=== PATIENT | male | born 1960 | race Caucasian/White ===

== ENCOUNTER 2023-02-06 17:11 | Inpatient (IN) ==
[2023-02-06] MEDS ORDERED: NS 0.9% 1000 ml BAG 1,000 ML IV ONE (18:25)
[2023-02-06] MEDS ORDERED: Morphine 2 MG/ML SYRINGE IV PRN (18:40)
[2023-02-06 18:42] LABS: Calcium 7.1 mg/dL (8.6-10.3); Creatinine, Serum 0.58 mg/dL (0.67-1.17); eGFR CKD-EPI 110.3 (>60)
[2023-02-06 18:49] LABS: Potassium 2.6 mmol/L (3.5-5.0)
[2023-02-06 20:13] LABS: INR 1.27 (0.88-1.18)
[2023-02-06 20:15] LABS: Magnesium 1.1 mg/dL (1.9-2.7)
[2023-02-06] MEDS: KCL 20 MEQ/100 ML IVPREMIX 20 MEQ/100 ML BAG IV SCH ×2 (20:17→23:25)
[2023-02-06] MEDS ORDERED: Magnesium Sulfate IV 3 GM in NS 0.9% 100 ml BAG 100 ML IVPB ONE (20:22)
[2023-02-06] MEDS ORDERED: Enoxaparin 40 MG/0.4 ML SYR SUBCUT ONE (20:34)
[2023-02-06 21:50] LABS: TSH Ultra Thyroid Stim Horm 0.92 mcIU/mL (0.34-5.60)
[2023-02-06 22:01] LABS: Folate 1.86 ng/mL (5.90-24.80)
[2023-02-06] MEDS: Lactated Ringers 1000 ml BAG 1,000 ML IV SCH (23:25)
[2023-02-07 03:58] LABS: ABS Basophils 0.2 10^3/uL (0.0-0.1); ABS Eosinophils 0.1 10^3/uL (0.0-0.5); ABS Lymphocytes 0.6 10^3/uL (1.0-4.8); ABS Monocytes 0.1 10^3/uL (0.0-1.1); ABS Neutrophils 4.8 10^3/uL (1.5-7.6); Eosinophil % 1.8 %; Hematocrit 25.3 % (38-53); Hemoglobin 9.1 g/dL (13.2-16.3); Lymphocyte % 11.1 %; Mean Corpuscular Hemoglobin 41.4 pg (27-33); Mean Platelet Volume 7.4 fL (7.5-11.2); Platelet Count 167 10^3/uL (150-450); Red Cell Distribution Width 20.2 % (12-17); White Blood Count 5.8 10^3/uL (3.6-10.2)
[2023-02-07 04:21] LABS: Calcium 6.8 mg/dL (8.6-10.3); Creatinine, Serum 0.51 mg/dL (0.67-1.17); Magnesium 1.7 mg/dL (1.9-2.7); Potassium 3.1 mmol/L (3.5-5.0); eGFR CKD-EPI 114.6 (>60)
[2023-02-07] MEDS ORDERED: Magnesium Sulfate 2 gm BAG 2 GM/50 ML BAG IVPB ONE (05:31)
[2023-02-07] MEDS: KCL 20 MEQ/100 ML IVPREMIX 20 MEQ/100 ML BAG IV SCH ×2 (07:31→10:09)
[2023-02-07] MEDS: Lactated Ringers 1000 ml BAG 1,000 ML IV SCH (07:31)
[2023-02-07 08:28] LABS: Albumin 2.2 g/dL (3.2-5.2)
[2023-02-07] MEDS ORDERED: ceFAZolin 2 GM PREMIX 2 GM/50 ML BAG ONE (08:40)
[2023-02-07] MEDS ORDERED: Metoclopramide 5 MG/ML VIAL (10 mg) ONE (08:57)
[2023-02-07] MEDS ORDERED: Rocuronium 50 mg VIAL 10 mg/ml 5 ml VIAL (50 mg) ONE (08:57)
[2023-02-07] MEDS ORDERED: Propofol 10 MG/ML 20 ML BTL ONE (08:57)
[2023-02-07] MEDS ORDERED: fentaNYL 250 mcg/5 ml 50 MCG/ML 5 ml VIAL (250 MCG) ONE (08:57)
[2023-02-07] MEDS ORDERED: Dexamethasone IV 4 MG/ML VIAL 1 ml VIAL ONE (08:57)
[2023-02-07] MEDS ORDERED: Acetaminophen IV 1 GM/100ML 1,000 MG/100 ML BAG IV ONE (08:57)
[2023-02-07] MEDS ORDERED: Ondansetron 4 mg VIAL 2 MG/ML 2 ml VIAL ONE (08:57)
[2023-02-07 09:21] LABS: Calcium 6.9 mg/dL (8.6-10.3); Creatinine, Serum 0.47 mg/dL (0.67-1.17); Magnesium 2.1 mg/dL (1.9-2.7); Potassium 3.2 mmol/L (3.5-5.0); eGFR CKD-EPI 117.5 (>60)
[2023-02-07] MEDS ORDERED: Naloxone 0.4 mg VIAL 0.4 mg/ml 1 ml VIAL IV PRN (09:44)
[2023-02-07] MEDS ORDERED: Prochlorperazine 5 mg/ml 2 ml VIAL (10 mg) IV PRN (09:44)
[2023-02-07] MEDS ORDERED: Morphine 4 MG/ML VIAL (1 ml) IV PRN (09:44)
[2023-02-07] MEDS ORDERED: Bupivacaine 0.5% SDV PF 30ML VIAL ONE ×2 (10:08→10:40)
[2023-02-07] MEDS: Nicotine PATCH 21 MG/24 HR PATCH TRANSDERM SCH (10:21)
[2023-02-07] MEDS ORDERED: fentaNYL 100 mcg/2 ml 50 MCG/ML VIAL ONE (13:36)
[2023-02-07] MEDS: fentaNYL 100 mcg/2 ml 50 MCG/ML VIAL IV PRN ×4 (13:37→14:32)
[2023-02-07] MEDS ORDERED: CALCIUM GLUCONATE 1GM/50ML NS 1 GM/50 ML BAG IV ONE (14:11)
[2023-02-07 14:48] LABS: Albumin 2.4 g/dL (3.2-5.2); Albumin/Globulin Ratio 0.8 (1-3); Creatinine, Serum 0.54 mg/dL (0.67-1.17); Globulin 2.9 g/dL (2-4); Potassium 4.1 mmol/L (3.5-5.0); Total Bilirubin 1.7 mg/dL (0.2-1.0); Total Protein 5.3 g/dL (6.4-8.9); eGFR CKD-EPI 112.7 (>60)
[2023-02-07] MEDS: Morphine 2 MG/ML SYRINGE IV PRN (16:42)
[2023-02-07] MEDS: ceFAZolin 1 GM in Dextrose 1 GM/50 ML BAG IVPB SCH (18:21)
[2023-02-07] MEDS: Acetaminophen IV 1 GM/100ML 1,000 MG/100 ML BAG IV PRN (22:05)
[2023-02-08] MEDS: Lactated Ringers 1000 ml BAG 1,000 ML IV SCH ×2 (00:26→12:25)
[2023-02-08] MEDS: ceFAZolin 1 GM in Dextrose 1 GM/50 ML BAG IVPB SCH ×2 (02:29→11:11)
[2023-02-08] MEDS: Acetaminophen IV 1 GM/100ML 1,000 MG/100 ML BAG IV PRN (06:18)
[2023-02-08 06:50] LABS: Hematocrit 25.8 % (38-53); Mean Corpuscular Hemoglobin 38.7 pg (27-33); Mean Corpuscular Hgb Conc 34.7 g/dL (31-36); Mean Corpuscular Volume 111.4 fL (80-97); Mean Platelet Volume 7.8 fL (7.5-11.2); Platelet Count 161 10^3/uL (150-450); Red Blood Count 2.32 10^6/uL (4.06-5.63); Red Cell Distribution Width 24.1 % (12-17); White Blood Count 7.8 10^3/uL (3.6-10.2)
[2023-02-08 07:09] LABS: Albumin/Globulin Ratio 0.8 (1-3); Creatinine, Serum 0.57 mg/dL (0.67-1.17); Globulin 2.5 g/dL (2-4); Magnesium 1.5 mg/dL (1.9-2.7); Potassium 3.4 mmol/L (3.5-5.0); Total Bilirubin 0.8 mg/dL (0.2-1.0); Total Protein 4.5 g/dL (6.4-8.9); eGFR CKD-EPI 110.8 (>60)
[2023-02-08] MEDS ORDERED: Potassium Chlor 20 meq TAB.ER PO ONE (07:16)
[2023-02-08] MEDS ORDERED: Magnesium Sulf 4 GM/100 ML IV 4,000 MG/100 ML BAG IVPB ONE (07:16)
[2023-02-08 07:36] LABS: Anisocytosis 3+; Macrocytosis 2+
[2023-02-08 07:38] LABS: ABS Eosinophils 0.1 10^3/uL (0.0-0.5); ABS Lymphocytes 1.1 10^3/uL (1.0-4.8); ABS Monocytes 0.2 10^3/uL (0.0-1.1); ABS Neutrophils 6.4 10^3/uL (1.5-7.6); Eosinophil % 0.8 %; Lymphocyte % 14.5 %; Nucleated Red Blood Cells % 0.1 /100 WBC (0.0-0.4)
[2023-02-08] MEDS: Nicotine PATCH 21 MG/24 HR PATCH TRANSDERM SCH (07:44)
[2023-02-08] MEDS: Enoxaparin 40 MG/0.4 ML SYR SUBCUT SCH (12:23)
[2023-02-08] MEDS: Morphine 2 MG/ML SYRINGE IV PRN (23:10)
[2023-02-09] MEDS: Morphine 2 MG/ML SYRINGE IV PRN (00:18)
[2023-02-09 06:46] LABS: Hematocrit 24.9 % (38-53); Hemoglobin 8.8 g/dL (13.2-16.3); Mean Corpuscular Hemoglobin 39.7 pg (27-33); Mean Corpuscular Hgb Conc 35.3 g/dL (31-36); Mean Corpuscular Volume 112.5 fL (80-97); Mean Platelet Volume 7.5 fL (7.5-11.2); Platelet Count 157 10^3/uL (150-450); Red Blood Count 2.21 10^6/uL (4.06-5.63); Red Cell Distribution Width 24.1 % (12-17); White Blood Count 6.6 10^3/uL (3.6-10.2)
[2023-02-09 07:00] LABS: Creatinine, Serum 0.47 mg/dL (0.67-1.17); Magnesium 1.6 mg/dL (1.9-2.7); Potassium 4.2 mmol/L (3.5-5.0); eGFR CKD-EPI 117.5 (>60)
[2023-02-09 07:07] LABS: ABS Basophils 0.1 10^3/uL (0.0-0.1); ABS Eosinophils 0.1 10^3/uL (0.0-0.5); ABS Lymphocytes 1.1 10^3/uL (1.0-4.8); ABS Monocytes 0.2 10^3/uL (0.0-1.1); ABS Neutrophils 5.1 10^3/uL (1.5-7.6); Eosinophil % 1.3 %; Lymphocyte % 17.2 %; Nucleated Red Blood Cells % 0.1 /100 WBC (0.0-0.4)
[2023-02-09] MEDS ORDERED: Magnesium Sulf 4 GM/100 ML IV 4,000 MG/100 ML BAG IVPB ONE (07:13)
[2023-02-09] MEDS: Nicotine PATCH 21 MG/24 HR PATCH TRANSDERM SCH (09:28)
[2023-02-09] MEDS: Enoxaparin 40 MG/0.4 ML SYR SUBCUT SCH (12:53)
[2023-02-10] MEDS: Magnesium Chloride EC 64 mgTAB PO SCH ×2 (00:06→08:15)
[2023-02-10] MEDS: Morphine 2 MG/ML SYRINGE IV PRN (01:32)
[2023-02-10 07:10] LABS: Magnesium 1.6 mg/dL (1.9-2.7); Potassium 4.2 mmol/L (3.5-5.0)
[2023-02-10 07:15] LABS: ABS Eosinophils 0.1 10^3/uL (0.0-0.5); ABS Lymphocytes 1.2 10^3/uL (1.0-4.8); ABS Monocytes 0.3 10^3/uL (0.0-1.1); Eosinophil % 1.2 %; Hematocrit 23.7 % (38-53); Hemoglobin 8.4 g/dL (13.2-16.3); Lymphocyte % 21.8 %; Mean Corpuscular Hemoglobin 39.8 pg (27-33); Mean Corpuscular Hgb Conc 35.4 g/dL (31-36); Mean Corpuscular Volume 112.5 fL (80-97); Mean Platelet Volume 7.3 fL (7.5-11.2); Nucleated Red Blood Cells % 0.1 /100 WBC (0.0-0.4); Platelet Count 159 10^3/uL (150-450); Red Blood Count 2.11 10^6/uL (4.06-5.63); Red Cell Distribution Width 23.6 % (12-17); White Blood Count 5.7 10^3/uL (3.6-10.2)
[2023-02-10 07:16] LABS: Creatinine, Serum 0.41 mg/dL (0.67-1.17); eGFR CKD-EPI 122.4 (>60)
[2023-02-10] MEDS ORDERED: Magnesium Sulf 4 GM/100 ML IV 4,000 MG/100 ML BAG IVPB ONE (07:45)
[2023-02-10] MEDS: Nicotine PATCH 21 MG/24 HR PATCH TRANSDERM SCH (08:09)
[2023-02-10] MEDS ORDERED: NON FORMULARY MED (Potassium Gluconate 550 mg (90 mg) Tablet) PO SCH (09:00)
[2023-02-10 10:44] VITALS: BP 120/76
[2023-02-10] MEDS: Enoxaparin 40 MG/0.4 ML SYR SUBCUT SCH (11:36)
== END 2023-02-10 13:50 | DRG 308 ==
LOC: EDHOLD 17:11 → ED 17:11 → SUATTDRO 18:35 → OBSVTOIN 18:35 → EDHOLD 21:41 → MEDTELE 22:35 → SSU 02-07 15:41
PROVIDERS: ADMIT Student in an Organized Health Care Education/Training Program; ATTEND Internal Medicine

== ENCOUNTER 2023-02-10 12:02 | Inpatient (IN) ==
[2023-02-10] MEDS ORDERED: Senna TAB 8.6 mg TAB PO PRN (16:01)
[2023-02-10] MEDS ORDERED: Magnesium Hydroxide LIQ 30 ML UDC PO PRN (16:01)
[2023-02-10] MEDS: Magnesium Chloride EC 64 mgTAB PO SCH (21:21)
[2023-02-11] MEDS: Magnesium Chloride EC 64 mgTAB PO SCH ×2 (08:52→20:41)
[2023-02-11] MEDS: Enoxaparin 40 MG/0.4 ML SYR SUBCUT SCH (12:13)
[2023-02-12 07:05] LABS: Albumin 2.2 g/dL (3.2-5.2); Albumin/Globulin Ratio 0.8 (1-3); Calcium 7.7 mg/dL (8.6-10.3); Creatinine, Serum 0.43 mg/dL (0.67-1.17); Globulin 2.7 g/dL (2-4); Potassium 4.8 mmol/L (3.5-5.0); Total Bilirubin 0.7 mg/dL (0.2-1.0); Total Protein 4.9 g/dL (6.4-8.9); eGFR CKD-EPI 120.7 (>60)
[2023-02-12] MEDS: Magnesium Chloride EC 64 mgTAB PO SCH ×2 (07:36→21:27)
[2023-02-12 07:41] LABS: ABS Eosinophils 0.1 10^3/uL (0.0-0.5); ABS Monocytes 0.3 10^3/uL (0.0-1.1); ABS Neutrophils 3.4 10^3/uL (1.5-7.6); ABS Nucleated RBC 0.01 10^3/ul; Eosinophil % 1.8 %; Hematocrit 25.9 % (38-53); Lymphocyte % 21.3 %; Mean Corpuscular Hemoglobin 39.7 pg (27-33); Mean Corpuscular Hgb Conc 34.9 g/dL (31-36); Mean Corpuscular Volume 113.8 fL (80-97); Mean Platelet Volume 7.4 fL (7.5-11.2); Nucleated Red Blood Cells % 0.2 /100 WBC (0.0-0.4); Platelet Count 159 10^3/uL (150-450); Red Blood Count 2.27 10^6/uL (4.06-5.63); Red Cell Distribution Width 22.7 % (12-17); White Blood Count 4.8 10^3/uL (3.6-10.2)
[2023-02-12 09:06] LABS: Magnesium 1.4 mg/dL (1.9-2.7)
[2023-02-12] MEDS: Magnesium Sulfate IV 3 GM in NS 0.9% 100 ml BAG 100 ML IVPB ONE (11:24)
[2023-02-12] MEDS: Enoxaparin 40 MG/0.4 ML SYR SUBCUT SCH (12:00)
[2023-02-12] MEDS: Nicotine PATCH 21 MG/24 HR PATCH TRANSDERM SCH (14:02)
[2023-02-13] MEDS: Magnesium Chloride EC 64 mgTAB PO SCH ×2 (07:53→20:55)
[2023-02-13] MEDS: Nicotine PATCH 21 MG/24 HR PATCH TRANSDERM SCH (07:57)
[2023-02-13 08:49] LABS: Calcium 7.6 mg/dL (8.6-10.3); Creatinine, Serum 0.46 mg/dL (0.67-1.17); Magnesium 1.6 mg/dL (1.9-2.7); eGFR CKD-EPI 118.3 (>60)
[2023-02-13] MEDS ORDERED: Magnesium Sulfate IV 3 GM in NS 0.9% 100 ml BAG 100 ML IVPB ONE (09:53)
[2023-02-13] MEDS: Enoxaparin 40 MG/0.4 ML SYR SUBCUT SCH (12:30)
[2023-02-13] MEDS: Magnesium Sulfate IV 3 GM in NS 0.9% 100 ml BAG 100 ML IVPB ONE (12:30)
[2023-02-14] MEDS: Magnesium Chloride EC 64 mgTAB PO SCH ×2 (08:44→21:02)
[2023-02-14] MEDS: Enoxaparin 40 MG/0.4 ML SYR SUBCUT SCH (12:39)
[2023-02-15 04:36] LABS: Calcium 7.7 mg/dL (8.6-10.3); Creatinine, Serum 0.54 mg/dL (0.67-1.17); Magnesium 1.5 mg/dL (1.9-2.7); Potassium 4.5 mmol/L (3.5-5.0); eGFR CKD-EPI 112.7 (>60)
[2023-02-15] MEDS: Magnesium Chloride EC 64 mgTAB PO SCH ×2 (07:58→20:50)
[2023-02-15] MEDS: Enoxaparin 40 MG/0.4 ML SYR SUBCUT SCH (12:04)
[2023-02-16] MEDS: Magnesium Chloride EC 64 mgTAB PO SCH ×2 (08:00→21:09)
[2023-02-16] MEDS: Enoxaparin 40 MG/0.4 ML SYR SUBCUT SCH (12:07)
[2023-02-17 06:43] LABS: ABS Eosinophils 0.1 10^3/uL (0.0-0.5); ABS Lymphocytes 0.8 10^3/uL (1.0-4.8); ABS Monocytes 0.4 10^3/uL (0.0-1.1); ABS Neutrophils 3.1 10^3/uL (1.5-7.6); Eosinophil % 2.9 %; Lymphocyte % 18.1 %; Mean Corpuscular Hemoglobin 38.2 pg (27-33); Mean Corpuscular Hgb Conc 34.6 g/dL (31-36); Mean Corpuscular Volume 110.3 fL (80-97); Mean Platelet Volume 7.5 fL (7.5-11.2); Nucleated Red Blood Cells % 0.1 /100 WBC (0.0-0.4); Platelet Count 212 10^3/uL (150-450); Red Blood Count 2.36 10^6/uL (4.06-5.63); Red Cell Distribution Width 22.4 % (12-17); White Blood Count 4.4 10^3/uL (3.6-10.2)
[2023-02-17 06:56] LABS: Creatinine, Serum 0.46 mg/dL (0.67-1.17); Magnesium 1.5 mg/dL (1.9-2.7); Potassium 4.4 mmol/L (3.5-5.0); eGFR CKD-EPI 118.3 (>60)
[2023-02-17] MEDS: Magnesium Chloride EC 64 mgTAB PO SCH ×3 (10:01→20:57)
[2023-02-17] MEDS: Enoxaparin 40 MG/0.4 ML SYR SUBCUT SCH (11:40)
[2023-02-18 04:26] VITALS: BP 97/69
[2023-02-18] MEDS: Magnesium Chloride EC 64 mgTAB PO SCH (07:36)
[2023-02-18] MEDS: Enoxaparin 40 MG/0.4 ML SYR SUBCUT SCH (11:57)
== END 2023-02-18 14:05 | disposition home or self-care (01) | DRG 860 ==
LOC: PMRU 13:56
PROVIDERS: ADMIT Physical Medicine & Rehabilitation; ATTEND Physical Medicine & Rehabilitation

== ENCOUNTER 2023-07-18 11:47 | Inpatient (IN) ==
[2023-07-18] MEDS ORDERED: Lactated Ringers 1000 ml BAG 1,000 ML IV ONE ×2 (12:03→13:28)
[2023-07-18 12:43] LABS: Hematocrit 23.6 % (38-53); Hemoglobin 8.1 g/dL (13.2-16.3); Mean Corpuscular Hgb Conc 34.3 g/dL (31-36); Mean Corpuscular Volume 99.3 fL (80-97); Red Blood Count 2.38 10^6/uL (4.06-5.63); Red Cell Distribution Width 14.4 % (12-17); White Blood Count 9.3 10^3/uL (3.6-10.2)
[2023-07-18 13:01] LABS: Albumin 2.2 g/dL (3.2-5.2); Albumin/Globulin Ratio 0.8 (1-3); Calcium 7.6 mg/dL (8.6-10.3); Creatinine, Serum 3.34 mg/dL (0.67-1.17); Globulin 2.9 g/dL (2-4); Potassium 3.1 mmol/L (3.5-5.0); Total Bilirubin 1.9 mg/dL (0.2-1.0); Total Protein 5.1 g/dL (6.4-8.9); eGFR CKD-EPI 19.9 (>60)
[2023-07-18 13:17] LABS: ABS Lymphocytes 1.2 10^3/uL (1.0-4.8); ABS Monocytes 0.4 10^3/uL (0.0-1.1); ABS Neutrophils 7.5 10^3/uL (1.5-7.6); Eosinophil % 0.4 %; Lymphocyte % 13.5 %; Mean Platelet Volume 8.8 fL (7.5-11.2); Platelet Count 85 10^3/uL (150-450)
[2023-07-18] MEDS ORDERED: Potassium Chlor 20 meq TAB.ER PO ONE ×2 (14:06→22:07)
[2023-07-18] MEDS ORDERED: Lactated Ringers 1000 ml BAG 1,000 ML IV SCH (16:00)
[2023-07-18 17:09] LABS: INR 1.02 (0.83-1.13)
[2023-07-18 17:24] LABS: Albumin 2.1 g/dL (3.2-5.2); Albumin/Globulin Ratio 0.8 (1-3); Calcium 7.5 mg/dL (8.6-10.3); Creatinine, Serum 3.08 mg/dL (0.67-1.17); Globulin 2.8 g/dL (2-4); Potassium 3.4 mmol/L (3.5-5.0); Total Bilirubin 1.8 mg/dL (0.2-1.0); Total Protein 4.9 g/dL (6.4-8.9); eGFR CKD-EPI 21.9 (>60)
[2023-07-18 18:14] LABS: Carcinoembryonic Antigen 24.1 ng/mL (0.1-5.0)
[2023-07-18] MEDS ORDERED: Albuterol/Ipratropium NEB.SOL (2.5/0.5 MG) 3 ML NEB.SOLN INH PRN (20:10)
[2023-07-18] MEDS ORDERED: SPIRIVA Respimat (tiotropium) 2.5 mcg/inh Inhaler INH SCH (21:00)
[2023-07-18] MEDS: Heparin 5000 UNITS/ML 1 mL VIAL SUBCUT SCH (21:03)
[2023-07-18] MEDS ORDERED: Ondansetron 4 mg VIAL 2 MG/ML 2 ml VIAL IV ONE (23:44)
[2023-07-19] MEDS ORDERED: NS 0.9% 500 ml BAG 500 ML IV ONE ×2 (02:15→03:15)
[2023-07-19 06:06] LABS: ABS Monocytes 0.5 10^3/uL (0.0-1.1); ABS Neutrophils 9.4 10^3/uL (1.5-7.6); Eosinophil % 0.1 %; Hematocrit 22.5 % (38-53); Hemoglobin 7.8 g/dL (13.2-16.3); Lymphocyte % 9.3 %; Mean Corpuscular Hemoglobin 34.1 pg (27-33); Mean Corpuscular Hgb Conc 34.5 g/dL (31-36); Mean Corpuscular Volume 98.7 fL (80-97); Mean Platelet Volume 8.7 fL (7.5-11.2); Platelet Count 82 10^3/uL (150-450); Red Blood Count 2.28 10^6/uL (4.06-5.63); Red Cell Distribution Width 14.2 % (12-17)
[2023-07-19 06:29] LABS: Anion Gap 10 mmol/L (2-16); Blood Urea Nitrogen 73 mg/dL (6-24); CO2 Carbon Dioxide 27 mmol/L (22-32); Calcium 7.3 mg/dL (8.6-10.3); Chloride 100 mmol/L (101-111); Creatinine, Serum 2.96 mg/dL (0.67-1.17); Glucose 95 mg/dL (70-100); Magnesium 1.4 mg/dL (1.9-2.7); Phosphorus 3.3 mg/dL (2.5-5.0); Potassium 3.8 mmol/L (3.5-5.0); Sodium 137 mmol/L (135-145)
[2023-07-19 06:34] LABS: % Iron Saturation 30 % (15-55); .Transferrin < 75 mg/dL (203-362); Iron 31 ug/dL (50-212); Total Iron Binding Capacity 105 mcg/dL (250-450); Unsaturated Iron Binding 74 ug/dL
[2023-07-19 06:55] LABS: Ferritin 185.5 ng/mL (24-336)
[2023-07-19 06:58] LABS: Folate 2.27 ng/mL (5.90-24.80)
[2023-07-19 06:59] LABS: Vitamin B12 902 pg/mL (180-914)
[2023-07-19] MEDS: SPIRIVA Respimat (tiotropium) 2.5 mcg/inh Inhaler INH SCH (07:13)
[2023-07-19] MEDS ORDERED: Potassium Chlor 20 meq TAB.ER PO ONE (07:26)
[2023-07-19] MEDS ORDERED: Magnesium Sulf 4 GM/100 ML IV 4,000 MG/100 ML BAG IVPB ONE (07:26)
[2023-07-19] MEDS: Heparin 5000 UNITS/ML 1 mL VIAL SUBCUT SCH ×2 (11:22→21:42)
[2023-07-20] MEDS ORDERED: Furosemide 20 mg/2 ml IV VIAL IV SLOW PU ONE (03:03)
[2023-07-20] MEDS ORDERED: NS 0.9% 500 ml BAG 500 ML IV ONE (03:35)
[2023-07-20] MEDS ORDERED: Albumin Human 25% 25 GM/100 ML BTL IV ONE (04:39)
[2023-07-20 05:40] LABS: ABS Lymphocytes 0.4 10^3/uL (1.0-4.8); ABS Monocytes 0.2 10^3/uL (0.0-1.1); ABS Neutrophils 4.1 10^3/uL (1.5-7.6); Hematocrit 21.3 % (38-53); Hemoglobin 7.1 g/dL (13.2-16.3); Lymphocyte % 8.3 %; Mean Corpuscular Hemoglobin 33.4 pg (27-33); Mean Corpuscular Hgb Conc 33.2 g/dL (31-36); Mean Corpuscular Volume 100.7 fL (80-97); Nucleated Red Blood Cells % 0.1 %/100WBC (0.0-0.8); Platelet Count 81 10^3/uL (150-450); Red Blood Count 2.11 10^6/uL (4.06-5.63); Red Cell Distribution Width 14.8 % (12-17); White Blood Count 4.8 10^3/uL (3.6-10.2)
[2023-07-20 05:51] LABS: Calcium 7.3 mg/dL (8.6-10.3); Creatinine, Serum 3.31 mg/dL (0.67-1.17); Magnesium 2.2 mg/dL (1.9-2.7); Potassium 3.7 mmol/L (3.5-5.0); eGFR CKD-EPI 20.1 (>60)
[2023-07-20] MEDS: KCL 10 MEQ/50 ML IVPREMIX 10 MEQ/50 ML BAG IV SCH ×3 (08:15→11:45)
[2023-07-20] MEDS: SPIRIVA Respimat (tiotropium) 2.5 mcg/inh Inhaler INH SCH (08:26)
[2023-07-20] MEDS: Heparin 5000 UNITS/ML 1 mL VIAL SUBCUT SCH ×2 (09:34→20:54)
[2023-07-20 14:58] VITALS: BP 78/44
[2023-07-20] MEDS ORDERED: Morphine ORAL CONCENTRATE 5 MG/0.25 ML ORAL.SYRIN SL PRN (15:44)
[2023-07-20] MEDS ORDERED: Ondansetron 4 mg VIAL 2 MG/ML 2 ml VIAL IV PRN (19:44)
== END 2023-07-21 01:47 | disposition expired | DRG 469 ==
LOC: ED 11:47 → EDHOLD 11:47 → MED 17:52
PROVIDERS: ADMIT Family Medicine; ATTEND Family Medicine